=== PATIENT | male | born 1990 | race Caucasian/White ===

== ENCOUNTER 2018-04-03 10:55 | Emergency (ER) | payer MEDICAID ==
[~2018-04-03] VITALS: Ht 182.9 cm; Wt 131.5 kg
[2018-04-03 10:55] VITALS: BP_SYST 114
--- NOTE | 2018-04-03 10:55 | NUR ---
Ambulatory in custody, wrist cuffed behind back. Accompanied by MARIA LUISA. Placed in hallway bed 1 Dr. Martínez at bedside for evaluation
[2018-04-03 11:07] VITALS: BP_SYST 114
--- NOTE | 2018-04-03 11:07 | NUR ---
Patient given written and verbal discharge instructions and verbalizes understanding. ER MD discussed with patient the results and treatment provided. Patient in stable condition. ID arm band removed. NO Rx given. Patient educated on pain management and to follow up with PMD. Pain Scale 0/10. Opportunity for questions provided and answered. Medication side effect fact sheet provided.
== END 2018-04-03 11:07 ==
LOC: SED 10:55
DX: F11.10 Opioid abuse, uncomplicated (principal); M54.5 Low back pain; R03.0 Elevated blood-pressure reading, without diagnosis of hypertension
CPT/HCPCS: 99283

== ENCOUNTER 2019-02-26 16:23 | Emergency (ER) | payer MEDICAID ==
[~2019-02-26] VITALS: Ht 182.9 cm; Wt 149.7 kg
[2019-02-26 16:25] VITALS: BP_SYST 139
--- NOTE | 2019-02-26 16:25 | NUR ---
BROUGHT IN BY MANAS GAUTAM AND PLACED IN HALLWAY, TRIAGED. REPORT GIVEN TO NURSE
--- NOTE | 2019-02-26 16:27 | NUR ---
Pt AAOx[facility] law enforcement for medical clearance prior to booking. Pt reports that he regularly uses heroin daily. Denies complaints at this time. Skin pink dry and warm, breathing even and unlabored. No other injuries/complaints per pt/noted. Will continue to monitor.
--- NOTE | 2019-02-26 16:33 | NUR ---
DR SALGUERO AT CHAIR SIDE FOR EVALUATION
[2019-02-26 16:58] VITALS: BP_SYST 139
--- NOTE | 2019-02-26 16:58 | NUR ---
Patient given written and verbal discharge instructions and verbalizes understanding. ER MD Yoon discussed with patient the results and treatment provided. Patient in stable condition. ID arm band removed. No Rx given. Patient educated on pain management and to follow up with PMD. Pain Scale 0. Opportunity for questions provided and answered. Medication side effect fact sheet provided.
== END 2019-02-26 16:58 ==
LOC: SED 16:23
DX: Z02.89 Encounter for other administrative examinations (principal); F19.10 Other psychoactive substance abuse, uncomplicated; F15.10 Other stimulant abuse, uncomplicated; R03.0 Elevated blood-pressure reading, without diagnosis of hypertension
CPT/HCPCS: 99283

== ENCOUNTER 2019-09-05 21:45 | Emergency (ER) | payer MEDICAID ==
[~2019-09-05] VITALS: Ht 182.9 cm; Wt 117.9 kg
[2019-09-05 21:50] VITALS: BP_SYST 120
[2019-09-05 22:57] VITALS: BP_SYST 137
== END 2019-09-05 22:57 ==
LOC: SED 21:45
DX: F11.10 Opioid abuse, uncomplicated (principal)
CPT/HCPCS: 99283

== ENCOUNTER 2019-10-09 11:29 | Emergency (ER) | payer MEDICAID ==
[~2019-10-09] VITALS: Ht 182.9 cm; Wt 113.4 kg
[2019-10-09 11:52] VITALS: BP_SYST 120
--- NOTE | 2019-10-09 12:00 | NUR ---
AMBULATED TO BED 4
[2019-10-09] MEDS ORDERED: ceFAZolin SODIUM 1 GM VIAL IM ONE (12:30)
[2019-10-09] MEDS ORDERED: LIDOCAINE 2%, 20 ML MDV ONE (12:34)
--- NOTE | 2019-10-09 12:45 | NUR ---
DR CONNER IN TO ASSESS.
--- NOTE | 2019-10-09 13:00 | NUR ---
ALERT, CALM, RESP UNLABORED, SKIN WARM AND DRY. COMMUNICATES CLEARLY. DENIES CP/SOB LARGE RT ABSCESS RT AC. DENIES FEVER/CHILLS
[2019-10-09 13:37] VITALS: BP_SYST 120
== END 2019-10-09 13:37 | disposition home or self-care (01) ==
LOC: SED 11:29
DX: L03.113 Cellulitis of right upper limb (principal); F11.10 Opioid abuse, uncomplicated
CPT/HCPCS: 96372; 99283; J0690; J2001

== ENCOUNTER 2021-03-18 18:46 | Emergency (ER) | payer MEDICAID ==
[~2021-03-18] VITALS: Ht 182.9 cm; Wt 138.3 kg
--- NOTE | 2021-03-18 18:49 | NUR ---
Placed in room CH1 . Placed on health occupations teacher, blood pressure machine and pulse oximeter. To gown for exam. Side rails up.
--- NOTE | 2021-03-18 18:50 | NUR ---
Triaged. In hallway chair with officers.
[2021-03-18 18:52] VITALS: BP_SYST 139
--- NOTE | 2021-03-18 18:52 | NUR ---
Patient BIB officers re dizziness adter Fentanyl use this AM. Also reports using Xanax. Patient awake, alert and oriented x 3. VSS. Awaiting MD evaluation.
--- NOTE | 2021-03-18 19:12 | NUR ---
Report given to May RN to assume care
[2021-03-18 19:23] VITALS: BP_SYST 139
--- NOTE | 2021-03-18 19:23 | NUR ---
Patient is medically clear, Patient D/C to custody.
== END 2021-03-18 19:23 ==
LOC: SED 18:46
DX: Z02.89 Encounter for other administrative examinations (principal)
CPT/HCPCS: 99283